=== PATIENT | female | born 2000 | race Caucasian/White ===

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

== ENCOUNTER 2022-02-09 10:20 | Day surgery (SDC) | payer BC, SELFPAY ==
[2022-02-09] VITALS (13 sets, daily range): BP systolic 86–126; BP diastolic 51–78; PULSE 56–110; RESP 14–18; TEMP 36.4–37.1; O2SAT 98–100; BMI 18.6
--- NOTE | 2022-02-09 10:41 | ED.VIS.FEGU ---
HPI HPI - Female History of Present Illness Chief Complaint: Vag Bld, Preg Detail of Chief Complaint: Vaginal bleeding concern for miscarriage Informant: patient Pain Pain: Positive for Pelvic Pain (Mild twinges) Onset: Today Context: Sudden Onset Timing: Intermittent and Lasts (Several minutes) Quality: Positive for - (Twinges) Current Severity: Gone Maximum Severity: Mild Worsened by: - (Nothing) Relieved by: - (Nothing) Bleeding Issue: Positive for Vaginal bleeding Onset: Today Context: Sudden Onset Timing: Continuous Current Severity: Mild Maximum Severity: Heavy Associated Symptoms Associated Symptoms: Positive for Frequency; Negative for Dysuria, Urgency and Hematuria Test: Positive Sexually: Positive for Active Control: No control P: 0 Narrative Narrative: Patient is a 21-year-old who presents with vaginal bleeding concern for miscarriage. She states bleeding started several hours ago. She is passing clots. She does not know if she passed tissue. She does not know her blood type. She says the father is O-. She does report mild lightheadedness. States the bleeding is not significant. She has occasional cramping twinging sensation in the pelvic area that lasts a minute or 2. She denies bruising easily. She has no allergies. Prior similar symptoms: No Recent Illness/Hospitalization: No PFSH PFSH Medical History (Updated 02/09/22 @ 14:[address] Chad Grossman MD) Pyelonephritis Home Medications nitrofurantoin monohyd/m-cryst [Macrobid] 100 mg PO BID 7 Days #14 cap 12/10/21 [Rx Last Taken Unknown] ondansetron 4 mg PO Q8H PRN PRN #10 tab 12/22/21 [Rx Last Taken Unknown] Allergy/AdvReac Type Severity Reaction Status Date / Time No Known Allergies Allergy Verified 02/09/22 10:21 Surgical History no surgical history no surgical history Social History (Updated 02/09/22 @ 10:[address] Chad Grossman MD) household members: significant other Smoking Status: Current every day smoker tobacco type: e-cigarettes substance use type: does not use ROS ROS ED Constitutional Constitutional ED: Denies chills, fever(s), subjective or sweats Eyes Eyes: Denies blurry vision, change in vision or diplopia ENT ENT ED: Denies ear pain, rhinorrhea or sore throat Cardiovascular Cardiovascular: Denies chest pain or palpitations Respiratory/Chest Respiratory/Chest: Denies cough, dyspnea or dyspnea on exertion Gastrointestinal Gastrointestinal: Reports abdominal pain; Denies diarrhea, nausea or vomiting Genitourinary Genitourinary ED: Denies dysuria, hematuria or urinary frequency Musculoskeletal Musculoskeletal: Denies arthralgias, myalgias or neck pain Integumentary Denies rash Neurologic Neurologic: Denies headache(s), paresthesias or weakness Psychiatric Psychiatric: Reports anxiety; Denies depression or suicidal thoughts Endocrine Endocrinology: Denies polydipsia, polyphagia or polyuria Hematologic/Lymphatic Hematologic/Lymphatic: Denies easy bleeding, easy bruising or lymphadenopathy EXAM Physical Exam Const Vital Signs: 02/09/22 10:21 02/09/22 12:21 Temperature 98.0 F Temperature Source Temporal Pulse Rate 110 H 78 Respiratory Rate 17 14 Blood Pressure 120/73 126/78 H Blood Pressure Mean 88 94 Pulse Ox 98 98 Oxygen Delivery Method Room Air Room Air Positive well nourished and well developed General Appearance ED: well developed; Negative for NAD, odor of alcohol detected or pallor HEENT Reports dry mucous membranes HEENT Narrative: Ears normal. Nares patent. Negative for trauma or tenderness Mouth ED: Yes dry mucous membranes Mouth: dry mucous membranes Eyes PERRL and EOMs intact bilaterally General Eye ED: Negative for pale conjunctiva or scleral icterus Neck no lymphadenopathy, supple and no JVD Resp normal respiratory effort and clear to auscultation bilaterally Cardio regular rhythm, S1 normal heart sound, no murmurs and no JVD Rate: tachycardic GI soft to palpation, non-tender and no masses; Negative for non-distended Auscultation: hypoactive bowel sounds; Negative for normoactive bowel sounds or hyperactive bowel sounds Palpation: Negative for tender, guarding, rigid, hepatomegaly, splenomegaly or mass no CVA tenderness External Female Exam: normal appearance of the urethra Extremity normal to inspection; Negative for full ROM General Extremety ED: Negative for edema or tenderness General Extremity: Negative for edema Neuro oriented x3, CN's II-XII intact bilaterally and no sensory deficits noted Sensorium / Orientation: alert Motor Exam: strength 5/5 throughout Psych Mood & Affect: tearful Skin no rashes or lesions noted and no wounds General Skin Exam: Negative for jaundice or pallor MDM MDM MDM Narrative Medical decision making narrative: Based on pelvic exam suspect patient has demise inevitable AB. Pelvic ultrasound was obtained which was interpreted by radiologist as demise. Since patient does not have a OB doctor Anita Dickson was paged. Patient has not had thing to eat or drink since 0800. Dr. Anita Dickson requested a talk screen and type and screen. Plan is OR for D&C Lab Data Attestation: I reviewed the patient's lab results. Labs: Laboratory Results - last 24 hr 02/09/22 02/09/22 11:00 11:00 Hgb 12.6 Hct 38.6 HCG, Quant 1378 H Radiography Diagnostic Testing: Clinical Impression(s) from Imaging Studies Obstetrics Ultrasound 02/09/22 12:20 IMPRESSION: demise. Electronically Signed: Alfonzo Garcia MD at 13:41 EDT , Discharge Plan Triage Chief Complaint: Vag Bld, Preg ED Provider: Chad Grossman Dx/Rx/DC Orders Clinical Impression: demise Prescriptions: No Action nitrofurantoin monohyd/m-cryst [Macrobid] 100 mg capsule 100 mg PO BID 7 Days Qty: 14 RF: 0 ondansetron 4 MG tablet 4 mg PO Q8H PRN PRN (Reason: Nausea) Qty: 10 RF: 0 Primary Care Provider: Wesley Salmon Referrals: Wesley Salmon MD [Primary Care Provider] - Disposition Disposition: Acute Care Hospital [facility]
[2022-02-09 11:13] LABS: Hematocrit 38.6 % (37-47); Hemoglobin 12.6 g/dL (12.0-15.0)
[2022-02-09 11:57] LABS: hCG Titer Quant., Serum 1378 mIU/mL (1-3)
--- NOTE | 2022-02-09 12:20 | US_ITS ---
STUDY: FIRST TRIMESTER OBSTETRICAL ULTRASOUND REASON FOR EXAM: Female, 21 years old Vaginal bleeding suspect demise/incomplete A LMP: 11/11/2021. TECHNIQUE: Transabdominal and Transvaginal TECHNICAL QUALITY: Adequate. PRIOR ULTRASOUND: Comparison is made with prior study 12/10/2021. FINDINGS: There is a gestational sac in the lower uterine segment. The mean sac diameter (MSD) measures 4.86 on the, indicating an estimated gestational age (EGA) of 10 weeks, 3 days. The gestational sac is irregular in appearance. There is no demonstrated yolk sac. The placenta is non-visualized. There is visualization of an embryo with no cardiac activity, consistent with intrauterine demise. The crown-rump length (CRL) measures 1.5 cm, indicating an estimated gestational age (EGA) of 7 weeks, 5 days. The estimated gestation age (EGA) by LMP is 15 weeks, 0 days. The estimated date of delivery (NAKIA) by LMP is 08/03/2022. The estimated gestation age (EGA) by US is 9 weeks, 0 days. The estimated date of delivery (NAKIA) by US is 09/14/2022. The uterus measures 11 cm x 6.7 cm x 6.4 cm. There is no demonstrated uterine fibroid. The cervix is closed. The right ovary measures 3.1 cm x 2.2 cm x 1 cm. There is no right ovarian cyst. There is no visualized right adnexal mass or complex lesion. The left ovary measures 2 cm x 1.1 cm x 0.9 cm. There is no left ovarian cyst. There is no visualized left adnexal mass or complex lesion. There is minimal fluid in the cul de sac. US/Init OB < 14Wks US IMPRESSION: demise. Electronically Signed: Alfonzo Garcia MD at 13:41 EDT ,
[2022-02-09 14:48] LABS: Amphetamine Urine VISTA NEGATIVE (<1000 ng/mL); Barbiturate Urine VISTA NEGATIVE (< 200 ng/mL); Benzodiazepine Urine VISTA NEGATIVE (< 200 ng/mL); Cocaine Urine VISTA NEGATIVE (< 300 ng/mL); Ecstacy Urine VISTA NEGATIVE (< 500 ng/mL); Methadone Urine VISTA NEGATIVE (< 300 ng/mL); PCP Urine VISTA NEGATIVE (< 25 ng/mL); THC Urine VISTA POSITIVE (< 50 ng/mL); Vista UDS pH Range 6
[2022-02-09] MEDS: Doxycycline 100 MG CAPSULE PO (16:00)
--- NOTE | 2022-02-09 16:44 | PCM.HP.STD ---
HPI - General HPI Narrative GUTIERREZ CATALAN, is a 21 F who presents for vaginal bleeding and upon evaluation diagnosed with miscarriage. She had not been evaluated by an DAT[employer] SOFTWARE CONSULTANT yet this because she was unsure if she was going to continue the or not. She had had some spotting last week and then had heavy bleeding this morning and cramping. She had nausea and breast tenderness. She denies any fevers. She was not on control in the past when she was on it and caused nausea. She uses marijuana 1 to 2 g a day and vapes throughout the day. [facility] Medical History (Updated 02/09/22 @ 16:[address] Anita Dickson MD) Pyelonephritis Home Medications NK 02/09/22 [History Last Taken Unknown] Allergy/AdvReac Type Severity Reaction Status Date / Time No Known Allergies Allergy Verified 02/09/22 10:21 Surgical History no surgical history Social History (Updated 02/09/22 @ 10:[address] Chad Grossman MD) household members: significant other Smoking Status: Current every day smoker tobacco type: e-cigarettes substance use type: does not use ROS Review of Systems ROS Unobtainable: due to mental status and other Constitutional Constitutional: Reports systems reviewed and no addt'l complaints, except as documented; Denies as per HPI, change in weight, fatigue, fever(s), malaise, weakness or other Eyes Eyes: Reports systems reviewed and no addt'l complaints, except as documented; Denies as per HPI, change in vision or other ENT HEENT: Reports as per HPI and dizziness; Denies dry mouth, headache(s), loss taste/smell, nasal congestion, nasal discharge, neck pain, sore throat or other Respiratory/Chest Respiratory/Chest: Reports systems reviewed and no addt'l complaints, except as documented Gastrointestinal Gastrointestinal: Reports systems reviewed and no addt'l complaints, except as documented and nausea; Denies vomiting Musculoskeletal Musculoskeletal: Reports systems reviewed and no addt'l complaints, except as documented; Denies back pain or joint pain Neurologic Neurologic: Reports systems reviewed and no addt'l complaints, except as documented Psychiatric Psychiatric: Reports systems reviewed and no addt'l complaints, except as documented Endocrine Endocrinology: Reports systems reviewed and no addt'l complaints, except as documented Hematologic/Lymphatic Hematologic/Lymphatic: Reports systems reviewed and no addt'l complaints, except as documented Vital Signs Vital Signs Vital Signs: 02/09/22 10:21 02/09/22 12:21 02/09/22 14:00 Temperature 98.0 F 98.7 F Temperature Source Temporal Oral Pulse Rate 110 H 78 88 Respiratory Rate 17 14 14 Blood Pressure 120/73 126/78 H 126/74 H Blood Pressure Mean 88 94 91 Blood Pressure Source Blood Pressure Position Blood Pressure Location Pulse Ox 98 98 100 Oxygen Delivery Method Room Air Room Air Room Air 02/09/22 15:44 Temperature 97.6 F L Temperature Source Temporal Pulse Rate 88 Respiratory Rate 18 Blood Pressure 118/64 Blood Pressure Mean 82 Blood Pressure Source Monitor Blood Pressure Position Supine Blood Pressure Location Left Arm Pulse Ox 98 Oxygen Delivery Method Room Air Weight Weight: 111 lb 15.917 oz Body Mass Index (BMI) 18.6 Physical Exam Const alert, oriented x3 and no apparent distress HEENT normocephalic Head and Scalp: atraumatic Eyes EOMs intact bilaterally and conjunctivae normal Neck full ROM, no lymphadenopathy, supple and thyroid normal General: trachea midline Lymph Lymphatic: no lymphadenopathy noted Resp normal respiratory effort, no retractions, no use of accessory muscles and clear to auscultation bilaterally Cardio regular rhythm GI normal to inspection, nondistended, normoactive bowel sounds, soft to palpation, non-distended and no masses Inspection: Negative for abdominal distention Back/Spine no CVA tenderness Extremity normal to inspection Skin no rashes or lesions noted Neuro moves all extremities and deep tendon reflexes 2+ bilaterally Motor Exam: clonus absent Psych mental status grossly normal Results Lab / Micro Data Result Diagrams: 02/09/22 11:00 Labs: Laboratory Results - last 24 hr 02/09/22 11:00: Hgb 12.6, Hct 38.6 02/09/22 11:00: HCG, Quant 1378 H 02/09/22 14:25: Urine Opiates Screen NEGATIVE, Urine Methadone Screen NEGATIVE, Ur Barbiturates Screen NEGATIVE, Ur Phencyclidine Scrn NEGATIVE, Ur Amphetamines Screen NEGATIVE, MDMA (Ecstasy) Screen NEGATIVE, U Benzodiazepines Scrn NEGATIVE, Urine Cocaine Screen NEGATIVE, U Cannabinoids Screen POSITIVE H, Ur Drug Screen Comment 02/09/22 14:25: Blood Type O POSITIVE, Antibody Screen NEGATIVE Radiology Impression Obstetrics Ultrasound 02/09/22 12:20 IMPRESSION: demise. Electronically Signed: Alfonzo Garcia MD at 13:41 EDT , Assessment & Plan Assessment/Plan (1) Incomplete miscarriage: PLAN: After discussing the patient's diagnosis and treatment plan options, patient wishes to proceed with surgical management. I have discussed with the patient the risks, benefits, and alternatives of the procedure which include but are not limited to risks of anesthesia, bleeding, infection, possible damage to bowel, bladder, or surrounding vasculature which could lead to additional surgery to evaluate any complications. Patient agrees to procedure and wishes to proceed. ACOG/uptodate references given for additional information regarding procedure.
--- NOTE | 2022-02-09 16:53 | PCM.OPRPT ---
Problems Associated Problem List Diagnoses (1) Incomplete miscarriage: Report of Operation Date of Procedure: 02/09/22 Pre-Operative Diagnosis: see problem list Post-Operative Diagnosis: same Surgery/Procedure Performed:: Suction dilation and curettage Description of Surgical Findings:: no FHT present, Nonviable 8 weeks supposed to 15 but only measuring [address] recorder: None Type of Anesthesia: Local MAC Special Medications: none Specimen's removed: POC Drains: none Estimated Blood Loss (mL): 100 Fluids Replaced: crystalloid Description of Procedure: Patient was taken to the operating room and placed under MAC local anesthesia. She was prepped and draped in the normal sterile fashion the dorsal lithotomy position. Bladder was drained of clear urine and anterior lip of the cervix was grasped and the uterus sounded to 10. Cervix was progressively dilated to allow passage of a 10mm suction curette. Progressive passes were made removing the retained products of conception without complication. Sharp curettage confirmed complete removal of the retained products. All instruments were removed from the vagina and excellent hemostasis was noted and the patient was taken to recovery in stable condition. Grafts/Implants Used: none Complications none Admit VTE Documentation VTE Present on Admission: No VTE Mechan Device Prophylaxis: SCD's Procedures Urinary/Genital [id number]: 17979 Trmt of incomplete Ab, any TM
[2022-02-09] MEDS: Lidocaine 1% (50 ml mdv) 50 ML Vial (17:02)
--- NOTE | 2022-02-09 17:03 | SUR.PHASEII ---
PER [place] ORNELAS TO NOT HAVE CBC. H&H WNL.
--- NOTE | 2022-02-09 17:05 | POC_PTH ---
PATIENT: GUTIERREZ CATALAN LOC: [facility] – [place] U#:[id number] AGE/SX: 21/F ROOM: RE02/09/[address]: Dr. Anita Dickson MD : 2000 BED: DIS: 02/09/2022 SPEC #: [id number] RECD: 02/10/22 07:04 STATUS: CRIS NDIAYE #: [id number] VERONICA: 02/09/22 17:[address]: Anita Dickson DEPT: SURGICAL PATHOLOGY RECD BY: Pia Vadlivia ENTERED: 02/10/22 08:07 SP TYPE: PROD CONC OTHR DR: Dr. Wesley Salmon MD Tissues: Product of conception, NOS Procedures: Surgery Specimen Level IV HEADER OPERATION: Suction dilation and curettage PRE-OP DIAGNOSIS: Incomplete TISSUE SUBMITTED: Products of conception MICROSCOPIC DIAGNOSIS Endometrium, curettage: Chorionic villi, decidualized stroma and trophoblastic cells consistent with products of conception. AM:destin 02/11/2022 MICROSCOPIC DESCRIPTION Slides are reviewed. GROSS DESCRIPTION Received in fixative is one container labeled with the patient's name and designated products of conception. The specimen consists of multiple fragments of pink hemorrhagic soft tissue that in aggregate measure 8 x 8 x 3 cm. No tissue is identified. Mh Teacher tissue is submitted in two cassettes. / SJ:destin 02/10/2022 TC:5 CPT: 88313
--- NOTE | 2022-02-09 17:16 | EX.PCM.DISCH ---
Discharge Instructions Procedure D&C Diet Discharge Diet: No restrictions Activity Discharge Activity: Return to Normal Activity, May Shower and May Take a Tub Bath (after 1 week) May resume sexual activity in: 1-2 weeks Weight Bearing Status: Weight bearing as tolerated Lifting Restrictions: none Dressing / Incision Call your doctor if you observe: Fever of 101 or Higher, Using more than 1 pad per hour, Shortness of breath and Uncontrolled pain Follow Up Care Please Follow Up With: Anita Dickson MD When: Call [phone] to schedule appointment. Test Results: Test results from this visit will be discussed in further detail at your follow-up appointment, if applicable. Discharge Plan Admission Attending Provider: Anita Dickson Primary Care Provider: Wesley Salmon Discharge Orders/Prescriptions Prescriptions: No Action NK RF: 0 Referrals / Follow Up: Wesley Salmon MD [Primary Care Provider] - Disposition Disposition (needs filled in before D/C Order can be placed): Home, Self Care
[2022-02-09] MEDS: Lactated Ringers 1,000 ML 30 ML IV (17:37)
== END 2022-02-09 18:36 | disposition home or self-care (01) ==
LOC: ED 14:13 → SDC 16:05 → AC 17:18
PROVIDERS: Emergency Provider Emergency Medicine; PCP Pediatrics; Visit Provider Obstetrics & Gynecology
PROC: (CPT 59812; principal; 2022-02-09 16:50)
DX: O03.4 Incomplete spontaneous abortion without complication (principal); O99.321 Drug use complicating pregnancy, first trimester; O99.331 Smoking (tobacco) complicating pregnancy, first trimester; F12.90 Cannabis use, unspecified, uncomplicated; F17.210 Nicotine dependence, cigarettes, uncomplicated
CPT/HCPCS: 59812; 01965; 76801; 80307; 84702; 85014; 85018; 86850; 86900; 86901; 88305; 99282; J7030; J7120; A4216; J2405